=== PATIENT | male | born 1995 | race Caucasian/White ===

== ENCOUNTER 2017-05-31 20:28 | Emergency (ER) | payer BC ==
[~2017-05-31] VITALS: Ht 185.4 cm; Wt 89.9 kg
[2017-05-31 20:51] LABS: APPEARANCE CLEAR ((CLEAR)); BILIRUBIN NEGATIVE; BLOOD NEGATIVE; COLOR YELLOW ((YELLOW)); GLUCOSE (STRIP) NEGATIVE; KETONES 5; LEUKOCYTES NEGATIVE; NITRITE NEGATIVE; PROTEIN (STRIP) NEGATIVE; SPECIFIC GRAVITY 1.029 (1.000-1.030); UCUL ADDED? NO; UROBILINOGEN 0.2 MG/DL (0.2-1.0)
[2017-05-31 21:23] LABS: HEMATOCRIT 42.8 % (38.0-50.0); HEMOGLOBIN 14.8 G/DL (12.5-16.6); MCH 32.4 PG (29.0-34.0); MCHC 34.6 G/DL (30.0-36.0); MCV 93.7 FL (86-99); PLATELET COUNT 201 K/uL (156-360); RBC DIS.WIDTH-SD 41.7 % (39-53); RED BLOOD COUNT 4.57 M/uL (4.00-5.50); WHITE BLOOD COUNT 9.3 K/uL (4.1-10.2)
[2017-05-31 21:36] LABS: ALBUMIN 4.7 g/dL (3.2-4.8)
[2017-05-31 21:37] LABS: CHLORIDE 106 mEq/L (99-109); POTASSIUM 3.8 mEq/L (3.7-5.4); SODIUM 140 mEq/L (136-147)
[2017-05-31 21:39] LABS: GLUCOSE 79 mg/dL (70-99); TOTAL PROTEIN 7.6 g/dL (6.4-8.3)
[2017-05-31 21:41] LABS: TOTAL BILIRUBIN 0.4 mg/dL (0.0-1.0)
[2017-05-31 21:42] LABS: ALKALINE PHOSPHATASE 62 IU/L (3-129)
[2017-05-31 21:43] LABS: CREATININE 1.5 mg/dL (0.6-1.3); GFR ESTIMATE (CALCULATED) > 59 mL/min/ (58.99-99999)
[2017-05-31 21:44] LABS: AST (GOT) 23 IU/L (2-34); UREA NITROGEN (BUN) 27 mg/dL (9-23)
[2017-05-31 21:45] LABS: ALT (GPT) 23 IU/L (3-49)
[2017-05-31] MEDS ORDERED: ACETAMINOPHEN500 MG PO (22:50)
[2017-05-31] MEDS ORDERED: ROBAXIN750 MG PO (22:50)
[2017-05-31 22:58] VITALS: BP 147/83
== END 2017-05-31 22:59 | disposition home or self-care (01) ==
LOC: EME 20:28
DX: R10.10 Upper abdominal pain, unspecified (principal); M54.9 Dorsalgia, unspecified; R30.0 Dysuria; R19.7 Diarrhea, unspecified; F17.200 Nicotine dependence, unspecified, uncomplicated
CPT/HCPCS: 74176; 80053; 81003; 85027; 99281; 99284